=== PATIENT | female | born 1950 | race Caucasian/White ===

== ENCOUNTER 2020-10-14 08:42 | Day surgery (SDC) | payer MEDICARE, OTHER ==
[2020-10-11 13:21] LABS: Urine Appearance CLOUDY (Clear); Urine Bilirubin NEGATIVE (Negataive); Urine Blood NEGATIVE (Negative); Urine Color YELLOW (Yellow); Urine Glucose NEGATIVE (Negative); Urine Protein NEGATIVE (Negative); Urine Specific Gravity 1.015 (1.005-1.030); Urine Urobilinogen 0.2 mg/dL (0.2-1.0)
[2020-10-11 13:23] LABS: Urine Microscopic Reflex ORDER UMIC
[2020-10-11 13:30] LABS: Absolute Lymphocytes (CBC) 2.7 K/uL (0.7-4.9); Basophils % 0.8 % (0-1.3); Hematocrit 44.6 % (36.0-45.0); Lymphocytes % 29.4 % (15.3-44.8); MPV 8.5 fL (7.6-11.3); RBC Red Blood Cell Count 5.19 M/uL (3.86-4.86)
[2020-10-11 13:31] LABS: Urine Bacteria <20 /HPF (<20); Urine RBC NONE SEEN /HPF (NONE SEEN)
[2020-10-11 13:32] LABS: Protime INR 1.01
[2020-10-11 13:34] LABS: Potassium 4.5 mmol/L (3.5-5.1)
[2020-10-14] MEDS ORDERED: Ringers Lactate 1,000 ML IV ONE ×2 (09:23→14:14)
[2020-10-14] MEDS ORDERED: SCOPOLAMINE HYDROBROMIDE PATCH TD ONE (09:23)
[2020-10-14] MEDS ORDERED: CEFAZOLIN/SWI 2gm 2 GM/20 ML SYR ONE (09:23)
[2020-10-14] MEDS ORDERED: CEFAZOLIN/SWI 1gm 1 GM/10 ML SYR ONE (09:23)
[2020-10-14] MEDS ORDERED: propofoL 200 MG/20 ML VIAL IV ONE (09:24)
[2020-10-14] MEDS ORDERED: NS 0.9% VIAL 10 ML ONE (09:25)
[2020-10-14] MEDS ORDERED: dexAMETHasone 10 MG/ML VIAL ONE (09:25)
[2020-10-14] MEDS ORDERED: FENTANYL CITR 250 MCG/5 ML ONE (09:25)
[2020-10-14] MEDS ORDERED: MIDAZOLAM HCL 2 MG/2 ML INJ ONE (09:25)
[2020-10-14] MEDS ORDERED: KETAMINE HCL 500 MG/5 ML VIAL ONE (09:25)
[2020-10-14] MEDS ORDERED: ROCURONIUM 50 MG/5 ML VIAL IV ONE (09:26)
[2020-10-14] MEDS ORDERED: ONDANSETRON 4 MG/2 ML VIAL ONE (09:26)
[2020-10-14] MEDS ORDERED: LIDOCAINE 1% MPF 2 ML AMPULE ONE (09:26)
[2020-10-14] MEDS ORDERED: NA CHLORIDE 0.9% 100 ML IV ONE (11:57)
[2020-10-14] MEDS ORDERED: VASOPRESSIN 20 UNIT/ML VIAL ONE (11:58)
[2020-10-14] MEDS ORDERED: CEFAZOLIN SODIUM 1 GM/VIAL ONE (11:59)
[2020-10-14] MEDS: Ringers Lactate 1,000 ML IV ONE ×2 (12:40→12:45)
[2020-10-14] MEDS: BUPIVACAINE 0.25% PF 30 ML VIAL ONE ×2 (12:47→12:49)
[2020-10-14] MEDS ORDERED: GLYCOPYRROLATE 0.2 MG/ML SYR ONE ×3 (13:18→17:00)
[2020-10-14] MEDS ORDERED: VECURONIUM 10 MG/VIAL IV ONE (13:26)
[2020-10-14] MEDS ORDERED: LIDOCAINE 1% W/EPI 1:100,000 MDV 20 ML VIAL ONE (16:13)
[2020-10-14] MEDS ORDERED: PROMETHAZINE INJ 25 MG/ML AMP IV PRN (16:48)
[2020-10-14] MEDS ORDERED: HYDROMORPHONE HCL 1 MG/ML INJ IV PRN (16:48)
[2020-10-14] MEDS ORDERED: ACETAMINOPHEN 500 MG TAB PO PRN (16:48)
--- NOTE | 2020-10-14 16:57 | P.BOP ---
Preoperative diagnosis: Incomplete uterovaginal prolapse, Leiomyomata, rectocele Postoperative diagnosis: Stage2 ut/post wall prolapse, cervical hypertrophy, leiomyoma Primary procedure: TLH BSO USLScolpopexy,post wall repair,perineorrhaphy,cystoscopy Secondary procedure: Lysis of bladder adhesions from c/s x3 Loom Stop Checker: Carlee Alvarez Estimated blood loss: 100 Specimen: ut and bilateral ovaries and tubes Findings: -2/-2/0/4/MOD/7/-1/-1/-2, USLS w 4 sutures:2goretex+2PDS Anesthesia: General Complications: None Drain(s): Urinary catheter Transferred to: Recovery Room Condition: Good
[2020-10-14] MEDS ORDERED: NEOSTIGMINE 1 MG/ML -5 ML ONE (17:00)
[2020-10-14] MEDS ORDERED: MORPHINE 10 MG/ML VIAL ONE (17:11)
[2020-10-14] MEDS: Ringers Lactate 1,000 ML IV SCH (19:30)
[2020-10-14] MEDS: atenoloL 50 MG TAB PO SCH (21:00)
--- NOTE | 2020-10-14 22:43 | OP ---
Date of Procedure: 10/14/2020 Surgeon: Kiara Hernandez MD Program Services Assistant: Carlee Alvarez. Preoperative Diagnoses: Incomplete uterovaginal prolapse, leiomyomata, and rectocele. Postoperative Diagnoses: Stage II uterine prolapse, posterior wall prolapse, cervical hypertrophy an d leiomyomata. Procedures Performed: 1.Total laparoscopic hysterectomy, bilateral salpingo-oophorectomy, significant amount of time at ast 50% of the hysterectomy spent for lysis of bladder adhesions from her scar. There were pericolonic adhesions, bladder adhesions. 2.Uterosacral ligament suspension, colpopexy. 3.Posterior wall repair, perineorrhaphy and cystoscopy. Estimated Blood Loss: 100. Specimens: Uterus, bilateral tubes and ovaries. Complications: No complications. Drains: Medeiros catheter and vaginal packing. Implants: No implants. Disposition: The patient was transferred to the PACU in stable condition. Findings: Uterus slightly enlarged, mostly normal in anatomy, pericolonic adhesions. Then bladder a dhesions significantly. Pelvic sidewall adhesions to the anterior broad ligament and the uterus like ly from scars. Then pop Q -2, -2, 0, 4, moderate 7, -1, -1 and -2. Uterosacral suspension was performed with 2 Medina -Lamonte and 2 PDS sutures, 1 Medina-Lamonte and 1 PDS on each side in the distal and proximal parts of the dong rosacral ligament dissecting up to the vaginal cuff with allowing penetration of the Medina-Lamonte sutures through the vaginal epithelium. Anterior and posterior valdes were affixed to the uterosacral. Cystoscopy was negative. No evidence of any foreign body or tumor in the bladder. Both ureteric tracy fices with normal jets of urine. Perineal and rectocele repair was done in a site-specific fashion and perineal body was reconstructed . Indications: The patient is a 70-year-old female who presented with prolapse symptoms. Evaluated wi th an ultrasound, negative. On ultrasound, found to have leiomyomata, also large cervix was noted. She had significant apical level 1 prolapse. On exam, the cervix appeared to be at +1 as an outpatie nt. As the patient was significantly bothered by her symptoms, all the options were presented to her , and this included prolapse repair laparoscopically or vaginal. Then use of a pessary. We discusse d about the benefits and risks and use of all these. The patient decided to have surgical treatment for this. Her cervix was found to be hypertrophied and enlarged. Her pelvis was extremely narrow __ definitely small at the mid pelvic area. After all the options including hysterectomy, bilateral salpingo-oophorectomy were discussed with rem oval of the cervix so that the cervical elongation or hypertrophy would not continue. The cervix bahman eared to be the most presenting symptom and bothersome symptom for the patient. There was history of postmenopausal bleeding in the past and therefore encouraged removal of the uterus. Discussed all t he benefits and alternatives of preservation, future pathology, and after completely understanding al l the events, she was consented for laparoscopic hysterectomy, bilateral salpingo-oophorectomy, utero sacral ligament suspension or sacrospinous fixation for colpopexy and posterior repair with perineorr haphy and cystoscopy. She underwent medical clearance. She did not stop her aspirin on Sunday when she was seen in preop as well as decision was made for surgery. We went ahead and asked her to stop the aspirin at this time and that we would proceed with the surgery. Procedure In Detail: The patient was brought to the OR. 3 g of Ancef were given. The consent was r edone and the was present on bedside, and after consenting for all these procedures, we took her back and placed in supine fashion on the operating table. General anesthesia was given. Placed in a dorsal lithotomy position. Pelvic exam was performed. It was very clear at this time that the cervix was actually at the bulging and large hypertrophy. Anterior lip made it protrude t o at least +1 with traction on the uterus. So, once this was determined and there was a posterior de fect that was found as well on rectovaginal exam, we proceeded to decide that there would be a inside barrel polisher ior distal repair with perineal body defect repair after finishing the apical fixation. Other inside barrel polisher ior or uterosacral feasible were planned, as planned were appropriate still after the exam and findings. Abdomen, vulva, vagina and perineum were prepped and draped in a sterile fashion. A Medeiros was placed to drain the bladder and a large VCare was introduced into the uterus. The cervix h ad to be compressed and depressed together in order for me to fit the cup of the uterine manipulator. Once this was fit, this area was then draped. A 1 cm infraumbilical incision was made with a scalp el using the open laparoscopy technique. Fascia was incised, tagged with 0 Vicryl sutures. Peritone um was entered sharply. S-retractors were placed. Teddy was introduced. Insufflation was adequate ly done and site of entry was checked and was unremarkable. The patient was placed in Trendelenburg position. Upper abdominal surfaces were all unremarkable. Appendix appeared to be unremarkable. Th ere were omental adhesions to the anterior abdominal wall. 5 left lower quadrant port was placed und er direct vision, and these adhesions were taken down with the help of the LigaSure. Then, 10 suprap ubic and 5 right lower quadrant ports were placed under direct vision after injecting the fascia and skin with Marcaine. Then, pelvic cavity was surveyed. All the bowel that was adhered to the sidewal ls was taken down with the help of the LigaSure and sharp dissection with scissors. Then, the bladde r was adhered and was clearly demarcated. Proceeded to go laterally. Opened the broad ligament on t he left side after taking down the round ligament. Then isolating the IP. Medial leaf of the broad ligament was also incised to make a window after verifying the position of the ureter at the pelvic b rim, which was much more medial and posterior. Then, the IP ligament was taken down. Then, the post erior broad ligament was taken down all the way to the posterior cuff with the help of the LigaSure b y creating planes by push spread dissection. Then anterior peritoneal surface was dissected away, an d this was taken down to the level of the bladder flap. Then gently all the broad ligament scar and vessels were carefully taken down to identify the uterine vessels. Both the uterine artery that was coiled and the veins and then the anterior wall of the vagina was dissected opened in this plane. Th e prevesical fat was also pushed back along with the bladder. This area was then dissected all the w ay with the help of the LigaSure and there was 1 area that started to bleed on the right dome. This was gently left alone after suction, irrigation making sure that there was no trauma to the vessels o n the superficial part of the bladder that were bleeding. I went on to the opposite side, took the utero-ovarian ligament, round ligament, then posterior leaf of the broad ligament, dissected distally to distal cuff. Then, anteriorly joined with anterior blad ashley flap and vessels were skeletonized, vessels were taken down. Bladder had to be dissected careful ly here to separate ti and dissect away from the cuff. As the pelvis was narrow, great care was take n to identify the ureters at the ureteric tunnels and make sure that the uterine vessels were taken i mmediately next to the uterus so that there was at least 1.5 cm distance between these areas to prote ct the ureter. The vessels were then isolated and taken down to the level of the internal os. Then, rest of the cardinal ligaments were taken down on the right side and on the left side similar dissec tion was performed to take down the vessels as the last cardinal ligaments. Then, circumferential co lpotomy was performed with a monopolar hook blade and the specimen detached. The hypertrophied cervi x and the uterus were all pulled out through the vagina. Left ovarian tube attached. Then the right ovarian tube was removed separately through the suprapubic port. Excellent hemostasis at all pedicl es. The cuff had 2 bleeding spots at the site of the posterior cuff at 8 o'clock and 4 o'clock posit ions. These were cauterized gently superficially with the help of the LigaSure. Then 0 PDS was used to close the cuff in a single thick layer. 2 angle sutures were placed and 3 [id number] in th e center. Once all this was done, then the uterosacral ligaments were identified. The one on the le ft was clearly visible, although not completely attached. A stay suture with 3-0 Monocryl was placed on the ligament on the left side, then by pulling it medially was able to identify the distance from the ureter in the distal part. So, approximately at least 5 cm from the distal with a good body of the uterosacral ligament that was still visible. So, a distal uterosacral suture was passed through the uterosacral ligament and then through the posterior connective tissue, posterior wall connective tissues, anterior wall connective tissue and the Medina-Lamonte suture was pulled up through the left lower quadrant port and held on with clamps. Similarly 0 PDS suture was placed through the proximal part of the uterosacral and slightly medial to the Medina-Lamonte suture still on the left side of the patient. Once these sutures were both done and they were both retracted to the left lower port. Then at this time I removed the stay suture and placed it on the right side. The right appeared to be slightly w eaker than the other and seemed more detached. However, after traveling at least 2 to 3 cm more prox imal, I was able to identify and this was identified. Ureter was seen in relationship to the uterosa cral at least 2 cm even at the closest area near the exit of the uterosacral onto the uterus, so sudheer ng sure that all this was noted. Uterosacral stitch with Medina-Lamonte distally was placed with the Medina- Lamonte and fixed to the posterior anterior wall connective tissue. Then, more proximal stitch with PDS was attached to the medial most aspect on the patient's right side. Once all the sutures were placed and attached, the stay sutures were removed, all the sutures were consecutively stitched all the way down without any air knots. There was excellent support on vaginal exam. The apex point C was -5. Culdoplasty was also performed while doing this, not a significant portion of the surgery and thorou gh irrigation and suction was performed. There was excellent hemostasis on the trocar. Then, the cy stoscopy was performed with 17-Emirati sheath and 30-degree lens, normal saline. Excellent jets of ur ine from both ureteric orifices were seen. No evidence of any trauma, foreign body, or tumors. Blad ashley was then drained. Medeiros was replaced. Then I went on to do my posterior repair. But before thi s, trocars were all removed under direct vision and injected the umbilicus and the fascia at the supr apubic site . Instrument, needle, and sponge counts were correct at the end of the case. The rectocele repair was then performed after clamping the Medeiros. The remnants of the hymen were pic ked up on each side. Gillette was made on top, almost janeen-shaped incision coming on slightly on the perineum and the vestibule. This incision was made after 1% lidocaine was injected, also had 20 cc of dilute vasopressin on the perineum, vestibule and the distal posterior wall. Janeen-shaped in cision was made on the epithelium. This was excised with the help of Metzenbaum scissors leaving the distal connective tissue in place. Then, dissection was performed to separate the rectovaginal sept um from the underlying tissues to see a site-specific defect. Most of the defect appeared to be dist al and some detachment of rectovaginal septum from the perineal body. So, plan was to reconstruct th is area and reattach the perineal body. This was started with 2-0 PDS after taking down the flaps fr om side to side. Then, once I came to the perineal body, the perineal body structures were sutured f rom side to side making sure that this was not too tight, but just obtaining the optimal diameter. T he area of excision was about 1 cm. Once all of this was done, I went ahead to hold the vaginal epit helium with Allis clamps and then trimmed the vaginal epithelium by less than 0.5 cm. Then, the flap that was created was brought down and stitched at the level of the hymen with the vaginal epithelium . Then, on both sides, 3-0 Vicryl and 2-0 Vicryl were run continuously to close the posterior vagina l incisions like inverted T. Once this was done, the perineum was closed with the help of 0 Vicryl i n a subcutaneous and subcuticular fashion. Rectal exam was performed. No evidence of any trauma to the rectum or anal canal. There was excellent lift of the perineal body without causing any diameter issues for the patient and the perineum was not pulled up. Vaginal packing was placed. Medeiros was attached to the Medeiros catheter. She was recovered from anesth esia and taken to PACU in stable condition. Instrument, needle, and sponge counts were correct and E BL was 100. Overnight stay with discharge tomorrow was the plan. She may go home with Medeiros cathete r. She will come back for a voiding trial on Sunday. CASIMIRO/LEANA Voice ID: [id number] Report ID: [id number]
[2020-10-15] MEDS: Ringers Lactate 1,000 ML IV SCH (04:00)
[2020-10-15 04:03] VITALS: O2SAT 99
[2020-10-15 07:29] VITALS: BP 144/77; TEMP 97.4
[2020-10-15 08:17] LABS: Absolute Lymphocytes (CBC) 1.3 K/uL (0.7-4.9); Basophils % 0.1 % (0-1.3); Hematocrit 41.1 % (36.0-45.0); Lymphocytes % 7.6 % (15.3-44.8); MPV 8.6 fL (7.6-11.3); RBC Red Blood Cell Count 4.78 M/uL (3.86-4.86)
[2020-10-15] MEDS: atenoloL 50 MG TAB PO SCH (09:00)
[2020-10-15] MEDS ORDERED: AMLODIPINE 5 MG TAB PO SCH (09:00)
[2020-10-15] MEDS ORDERED: ATORVASTATIN 10 MG TAB PO SCH (09:00)
[2020-10-15] MEDS ORDERED: LOSARTAN POTASSIUM 50 MG TABLET PO SCH (09:00)
== END 2020-10-15 09:43 | disposition home or self-care (01) ==
LOC: OR 08:42 → 2ND-WC 17:00 → OR 10-15 09:43
PROVIDERS: ATTEND Obstetrics & Gynecology
PROC: 0UT24ZZ Resection of Bilateral Ovaries, Percutaneous Endoscopic Approach (ICD-10-PCS; 2020-10-14)
PROC: 0UT74ZZ Resection of Bilateral Fallopian Tubes, Percutaneous Endoscopic Approach (ICD-10-PCS; 2020-10-14)
PROC: 0TNB4ZZ Release Bladder, Percutaneous Endoscopic Approach (ICD-10-PCS; 2020-10-14)
PROC: 0DNU4ZZ Release Omentum, Percutaneous Endoscopic Approach (ICD-10-PCS; 2020-10-14)
PROC: 0USG7ZZ Reposition Vagina, Via Natural or Artificial Opening (ICD-10-PCS; 2020-10-14)
PROC: 0JQC0ZZ Repair Pelvic Region Subcutaneous Tissue and Fascia, Open Approach (ICD-10-PCS; 2020-10-14)
PROC: 0HQ9XZZ Repair Perineum Skin, External Approach (ICD-10-PCS; 2020-10-14)
PROC: 0UT94ZZ Resection of Uterus, Percutaneous Endoscopic Approach (ICD-10-PCS; principal; 2020-10-14 10:00)
DX: N81.2 Incomplete uterovaginal prolapse (principal); D25.0 Submucous leiomyoma of uterus; N81.6 Rectocele; N95.2 Postmenopausal atrophic vaginitis; I10 Essential (primary) hypertension; Z20.822 Contact with and (suspected) exposure to COVID-19
CPT/HCPCS: 58571; 53899; 49329; 57283; 57250; 87088; 85025 ×2; 87086; 80048; 36415 ×2; 86900; 86850; 85610; 86901; 88307; 85730; 94010; U0002; J2704; J2250; J3010; J1100; J2710; J0690 ×2; J7120 ×5; J2405; 81003; 81015